=== PATIENT | male | born 1985 | race Caucasian/White ===

== ENCOUNTER 2022-06-06 05:50 | Emergency (ER) | payer OTHER, SELFPAY ==
[2022-06-06 05:55] VITALS: BP 127/87; PULSE 62; RESP 22; TEMP 36.8; O2SAT 99
[2022-06-06] MEDS: KETOROLAC (*BKC) 60 MG/2 ML VIAL IM (08:03)
[2022-06-06] MEDS: diazePAM (*CRX) 5 MG TABLET (08:03)
--- NOTE | 2022-06-06 08:58 | ED.BACK ---
HPI - Back Pain/Injury General Chief Complaint: Back Pain/Injury Stated Complaint: back pain Time Seen by Provider: 06/06/22 07:05 History of Present Illness HPI Narrative: Patient is a 36-year-old male who presents ER with low back pain and numbness in his right foot. Patient reports he underwent spine injection early this month. Since then he has had increased aching discomfort in his back and increase in numbness in the right lower extremity. Sometimes has trouble feeling his accelerator in the car. Denies any falls or injuries. No fevers or chills or sweats. He has contacted his pain management and recently finished 1 week of 60 mg of prednisone. Last dose was 5 days ago. Symptoms persist so he is seeking evaluation here today. No saddle anesthesia or urinary incontinence. Pain is improved with laying down and worse with getting up and standing. Related Data Allergies Allergy/AdvReac Type Severity Reaction Status Date / Time carbinoxamine [From [facility]] Allergy Hives Verified 06/06/22 06:26 pseudoephedrine [From [facility]] Allergy Hives Verified 06/06/22 06:26 Review of Systems Review of Systems: All systems reviewed & are unremarkable except as noted in HPI and below Constitutional: Constitutional: Denies chills and Denies fever(s) Gastrointestinal: Gastrointestinal: Denies abdominal pain, Denies nausea and Denies vomiting Musculoskeletal: Musculoskeletal: Reports back pain, Denies arthralgias and Denies joint swelling Neurologic: Denies headache(s), Denies focal weakness and Reports numbness PMFSH Past Medical History Medical History (Updated 06/06/22 @ 09:08 by Timmy Hankins MD) Chronic back pain Surgical History Surgical History (Updated 06/06/22 @ 09:08 by Timmy Hankins MD) History of back surgery Exam Narrative: GENERAL: Well-appearing, well-nourished, and in no acute distress. HEAD: Normocephalic, atraumatic. CHEST: Clear to auscultation. No respiratory distress. HEART: Regular rate and rhythm. Normal peripheral pulses. Back: No reproducible T/L-spine midline tenderness. No reproducible paraspinal muscular tenderness or SI tenderness. Scars present from previous low back surgery. No evidence sinus infection related to previous injection. EXTREMITIES: Normal range of motion. No edema. Ambulates without difficulty. SKIN: Warm, dry, no rash. NEURO: Sharp and soft touch intact in right lower extremity. Alert and oriented x3. PSYCH: Normal mood and affect. Course Course Emergency Course: Patient resting comfortably in bed chest has right lower back pain that radiates down his leg. He is up and ambulatory in the department under his own power without assistance. No focal deficit on exam. Treated with anti-inflammatories muscle relaxers here and he reports improvement.. Recommend follow-up with his pain management physician. We will provide some pain medication for home. Vital Signs Vital signs: Vital Signs Temperature 98.3 F 06/06/22 05:55 Pulse Rate 62 06/06/22 05:55 Respiratory Rate 22 H 06/06/22 05:55 Blood Pressure 127/87 06/06/22 05:55 Pulse Oximetry 99 06/06/22 05:55 Oxygen Delivery Room Air 06/06/22 05:55 Temperature 98.3 F 06/06/22 05:55 Pulse Rate 62 06/06/22 05:55 Respiratory Rate 22 H 06/06/22 05:55 Blood Pressure 127/87 06/06/22 05:55 Pulse Oximetry 99 06/06/22 05:55 Oxygen Delivery Room Air 06/06/22 05:55 Discharge Plan Discharge Clinical Impression: Sciatica Patient Disposition: Home, Self-Care Condition: Stable Instructions: Acute Low Back Pain (ED) Additional Instructions: Return to the ER if you have increased pain in your back, you develop lower extremity weakness/numbness/paralysis, you have numbness or tingling in your private parts, or you are unable to control your ability to urinate/stool. If you have GI upset make sure you are taking this medication with food. If your stools become dark black d
--- NOTE | 2022-06-06 09:27 | PC.NURSE ---
ASSESSMENT WAS DONE AT 0730 AND INADVERTENTLY DOCUMENTED AT THIS TIME.
== END 2022-06-06 09:10 | disposition home or self-care (01) ==
PROVIDERS: Emergency Provider Emergency Medicine; PCP Nurse Practitioner
DX: M54.41 Lumbago with sciatica, right side (principal)
CPT/HCPCS: 96372; 99284; A9270; J1885

== ENCOUNTER 2022-09-28 14:58 | Emergency (ER) | payer OTHER, SELFPAY ==
[2022-09-28 15:15] VITALS: BP 122/75; PULSE 72; RESP 16; TEMP 37; O2SAT 95
--- NOTE | 2022-09-28 15:16 | ED.URI ---
HPI - URI/Sore Throat General Chief Complaint: Upper Respiratory Infection Stated Complaint: SORE THROAT Time Seen by Provider: 09/28/22 15:16 Source: patient Mode of arrival: ambulatory Limitations: no limitations History of Present Illness HPI Narrative: 37-year-old male presents with complaint of sore throat, headache and fatigue score 3 days. Patient reports that his son has strep throat. Afebrile. All systems reviewed and negative except as noted above. Related Data Allergies Allergy/AdvReac Type Severity Reaction Status Date / Time carbinoxamine [From [facility]] Allergy Hives Verified 09/28/22 15:08 pseudoephedrine [From [facility]] Allergy Hives Verified 09/28/22 15:08 Review of Systems Review of Systems: CONSTITUTIONAL: Denies fever, chills, or sweats. Reports fatigue. EYES: Denies visual changes, redness, or discharge. ENT: Denies rhinorrhea, congestion. Reports sore throat. Denies otalgia. CARDIOVASCULAR: Denies chest pain, palpitations, or edema. RESPIRATORY: Denies cough or dyspnea. GASTROINTESTINAL: Denies abdominal pain, nausea, vomiting, or diarrhea. GENITOURINARY: Denies dysuria or hematuria. SKIN: Denies rash or itching. MUSCULOSKELETAL: Denies back pain, joint pain, or myalgia. NEUROLOGIC: Denies headache, numbness, or weakness. PSYCHIATRIC: Denies anxiety or depression. All other systems reviewed are negative, except as documented in HPI. [facility] Past Medical History Medical History (Updated 09/28/22 @ 15:43 by Melinda Castillo NP) Chronic back pain Surgical History Surgical History (Updated 06/06/22 @ 09:08 by Timmy Hankins MD) History of back surgery Comments At time of signature, agree with nursing past medical, surgical, social and family history. There is no relevant family history pertinent to the presenting complaint. Exam Narrative: GENERAL: This is a well-nourished, well-developed patient, in no apparent distress. HEAD: normocephalic, atraumatic. EYES: PERRL. Sclera clear/white. Vision is grossly intact. EARS: External ears normal, auditory canals clear and without drainage, TMs normal without perforation. Hearing grossly intact. NOSE: External nose normal with no obvious nasal discharge, nares without redness, no rhinorrhea. THROAT: Mucous membranes moist, erythema to posterior pharynx mild swelling. No exudates. NECK: Neck supple, non-tender without lymphadenopathy, masses or thyromegaly. CARDIOVASCULAR: Regular rate and rhythm without murmurs, gallops, or rubs. RESPIRATORY: Clear to auscultation. Breath sounds equal bilaterally. No wheezes, rales, or rhonchi. SKIN: warm, Dry, intact with no suspicious lesions or rash, good texture and turgor. NEURO: awake, alert, and oriented to person, place and time. There were no obvious focal neurologic abnormalities. EXTREMITIES: No joint tenderness, effusion, or edema noted. Course Course Level of Care: Express Care Visit Vital Signs Vital signs: Vital Signs Temperature 37.0 C 09/28/22 15:15 Pulse Rate 72 09/28/22 15:15 Respiratory Rate 16 09/28/22 15:15 Blood Pressure 122/75 09/28/22 15:15 Pulse Oximetry 95 09/28/22 15:15 Oxygen Delivery Room Air 09/28/22 15:15 Temperature 37.0 C 09/28/22 15:15 Pulse Rate 72 09/28/22 15:15 Respiratory Rate 16 09/28/22 15:15 Blood Pressure 122/75 09/28/22 15:15 Pulse Oximetry 95 09/28/22 15:15 Oxygen Delivery Room Air 09/28/22 15:15 Reviewed MDM - URI/Sore Throat MDM Narrative Medical decision making narrative: Patient is aware of diagnosis, understands and agrees to treatment plan. Anticipatory guidance given. Patient agrees to follow-up as directed and is aware of reasons to seek care at the emergency department. Portions of this record may have been created with voice recognition software Will treat patient for strep throat with antibiotics due to exposure, exam findings and symptoms. Differential Diagnosis Differential diagnosis: Like
== END 2022-09-28 15:47 | disposition home or self-care (01) ==
PROVIDERS: Emergency Provider Nurse Practitioner Family; PCP Nurse Practitioner
DX: J02.0 Streptococcal pharyngitis (principal)
CPT/HCPCS: 87081; 87880; 99213; G0463

== ENCOUNTER 2023-02-06 15:41 | Emergency (ER) | payer OTHER, SELFPAY ==
--- NOTE | ~2023-02-06 | XR_ITS ---
EXAM: XR finger 1st RT min 2V DATE: 02/06/2023 15:58 HISTORY: smashed finger in wood [employer] . COMPARISON: None available. FINDINGS: Lateral view limited by overlapping fingers. Normal mineralization. No fracture or dislocat ion. No lytic or blastic lesion. Joint spaces are maintained. No erosion or periosteal change. Soft t issues within normal limits. IMPRESSION: No acute osseous finding in the right thumb. Reviewed, dictated and finalized at location K.
[2023-02-06 15:50] VITALS: BP 127/71; PULSE 54; RESP 16; TEMP 36.4; O2SAT 97
--- NOTE | 2023-02-06 15:51 | ED.GENADULT ---
HPI - General Adult General Chief complaint: Extremity Injury, Upper Stated complaint: cut rt tip of fingernail Time Seen by Provider: 02/06/23 15:52 Source: patient Mode of arrival: ambulatory Limitations: no limitations History of Present Illness HPI narrative: 37 y/o male presented for c/o right thumb pain and bleeding under the nail after injury this morning at 0830. States he got the thumb caught between wood and the hydraulic cutting machine. Took Tylenol #3 at 1000. Has applied ice. Pain is 10/10. denies decreased ROM, numbness, tingling or weakness of the finger. Related Data Home Medications Medication Instructions Recorded Confirmed calcium carb-vitamin D3 ER 600 mg 1 tablet PO DAILY 02/06/23 02/06/23 (1,500 mg)-500 unit tablet,ER 24 hr cholecalciferol (vitamin D3) 25 25 mcg PO DAILY 02/06/23 02/06/23 mcg (1,000 unit) capsule (Vitamin D3) Allergies Allergy/AdvReac Type Severity Reaction Status Date / Time carbinoxamine [From [facility]] Allergy Hives Verified 02/06/23 15:48 pseudoephedrine [From [facility]] Allergy Hives Verified 02/06/23 15:48 Review of Systems Review of Systems: CONSTITUTIONAL: Denies body aches, fever, chills EYES: Denies visual changes ENT: Denies rhinorrhea, congestion CARDIOVASCULAR: Denies chest pain, palpitations, or edema. RESPIRATORY: Denies cough or dyspnea. GASTROINTESTINAL: Denies abdominal pain, nausea, vomiting, or diarrhea. SKIN: Denies rash, itching, or wounds. MUSCULOSKELETAL: Reports right thumb pain Denies back pain, joint pain, or myalgia. NEUROLOGIC: Denies headache, numbness, tingling, or weakness. All systems reviewed & are unremarkable except as noted in HPI and below PMFSH Past Medical History Medical History (Updated 02/06/23 @ 16:31 by Charline Ramos APRN) Chronic back pain Surgical History Surgical History (Updated 02/06/23 @ 16:25 by Charline Ramos APRN) H/O spinal fusion History of back surgery Comments At time of signature, I have reviewed and agree with nursing past medical, surgical, social and family history unless otherwise noted. Please see nursing chart for further information. There is no relevant family history pertinent to the presenting complaint Exam Narrative: GENERAL: appears in pain, no acute distress. HEAD: Normocephalic, atraumatic. EYES: conjunctivae clear NECK: Supple. CHEST: Speaks in full sentences. No respiratory distress. HEART: Regular rate and rhythm. Normal and equal peripheral pulses. EXTREMITIES: Right thumb with subungual hematoma. DIP has normal strength. Finger with normal sensation, normal range of motion. Nail is intact. No open wounds, or obvious deformity; alignment normal, pulse palpable and equal bilaterally, skin warm, dry, pink. Capillary refill less than 3 seconds. SKIN: Warm, dry, no rash. NEURO: Alert and oriented x3. PSYCH: Normal mood and affect Course Course Emergency Course: Patient is aware of diagnosis, understands and agrees to treatment plan. Anticipatory guidance given. Patient agrees to follow-up as directed and is aware of reasons to seek care at the emergency department. Portions of this record may have been created with voice recognition software Level of Care: Express Care Visit Vital Signs Vital signs: Vital Signs Temperature 97.5 F L 02/06/23 15:50 Pulse Rate 54 L 02/06/23 15:50 Respiratory Rate 16 02/06/23 15:50 Blood Pressure 127/71 02/06/23 15:50 Pulse Oximetry 97 02/06/23 15:50 Temperature 97.5 F L 02/06/23 15:50 Pulse Rate 54 L 02/06/23 15:50 Respiratory Rate 16 02/06/23 15:50 Blood Pressure 127/71 02/06/23 15:50 Pulse Oximetry 97 02/06/23 15:50 Reviewed Procedures Nail Trephination Nail Trephination #1: Nail Trephination Date: 02/06/23 Location (finger): right and thumb Sterile prep: chlorhexidine Method of drainage: nail cautery Procedure successful: Yes Patie
== END 2023-02-06 16:28 | disposition home or self-care (01) ==
PROVIDERS: Emergency Provider Nurse Practitioner Family; PCP Nurse Practitioner
DX: S60.111A Contusion of right thumb with damage to nail, initial encounter (principal); W31.89XA Contact with other specified machinery, initial encounter
CPT/HCPCS: 11740; 73140; 99213; G0463

== ENCOUNTER 2024-12-12 16:16 | Emergency (ER) | payer OTHER, SELFPAY ==
--- NOTE | ~2024-12-12 | XR_ITS ---
XR hand LT min 3V Ordering provider: Janis Mix NP History: . dropped car part on hand . Comparison: None. FINDINGS: BONES: No acute fracture or dislocation. JOINT SPACES: Well maintained. SOFT TISSUES: Unremarkable. IMPRESSION: No acute osseous abnormality left hand. Reviewed, dictated and finalized at location A.
[2024-12-12 16:20] VITALS: BP 132/79; PULSE 53; RESP 18; TEMP 36.6; O2SAT 98
--- NOTE | 2024-12-12 16:26 | WC.ED.TRAUMA ---
HPI - Trauma General Chief Complaint: Extremity Injury, Upper Stated Complaint: Left Hand Pain Time Seen by Provider: 12/12/24 16:36 Source: patient, RN notes reviewed and old records reviewed Mode of arrival: ambulatory Limitations: no limitations History of Present Illness HPI narrative: 39 year old male patient presents to clinic with complaints of dropping a 30 LB car part onto his left hand about 2.5 hours ago. Patient reports that he has some discomfort to the dorsal aspect of his left hand between the 1st digit and thumb. Patient reports that he has most discomfort with gripping. He completed the job he was working on and his boss tole him to go get x-ray. complaint: other (dropped 30 # car part on his left dorsal hand) Onset (ago): hour(s) (2.5 hours ago) Loss of Consciousness: no Location: other (left dorsal hand between thumb and index finger region) Severity scale (1-10): 2 Associated symptoms: other (mild swelling to area with mild pain, increased pain with gripping.) Treatments prior to arrival: other (none) Related Data Home Medications ?Medication ?Instructions ?Recorded ?Confirmed ?Last Taken ?Type calcium carb-vitamin D3 ER 600 mg 1 tablet PO DAILY 02/06/23 02/06/23 Unknown History (1,500 mg)-500 unit tablet,ER 24 hr cholecalciferol (vitamin D3) 25 25 mcg PO DAILY 02/06/23 02/06/23 Unknown History mcg (1,000 unit) capsule (Vitamin D3) Allergies Allergy/AdvReac Type Severity Reaction Status Date / Time carbinoxamine (From [facility]) Allergy Hives Verified 12/12/24 16:26 pseudoephedrine (From [facility]) Allergy Hives Verified 12/12/24 16:26 Review of Systems Review of Systems: CONSTITUTIONAL: Denies fever, chills, or sweats. EYES: Denies visual changes, redness, or discharge. ENT: Denies rhinorrhea, congestion, sore throat, or otalgia. CARDIOVASCULAR: Denies chest pain, palpitations, or edema. RESPIRATORY: Denies cough or dyspnea. GASTROINTESTINAL: Denies abdominal pain, nausea, vomiting, or diarrhea. GENITOURINARY: Denies dysuria or hematuria. SKIN: Denies rash or itching. MUSCULOSKELETAL: Denies acute back pain does have some chronic back pain at times, positive for discomfort to left dorsal hand between thumb and index finger, , or myalgia. NEUROLOGIC: Denies headache, numbness, or weakness. PSYCHIATRIC: Denies anxiety or depression. All systems reviewed & are unremarkable except as noted in HPI and below PMFSH Past Medical History Medical History (Updated 12/13/24 @ 00:02 by Taylor Dover) Chronic back pain Surgical History Surgical History (Updated 02/06/23 @ 16:25 by Charline Solano APRN) H/O spinal fusion History of back surgery Social History Social History (Updated 12/13/24 @ 12:38 by Janis Mix NP) Alcohol intake: current Alcohol use details: social Substance use type: does not use Living arrangements: with family Gender identity (if verbalized by the patient): Male Comments At time of signature, agree with nursing past medical, surgical, social and family history. There is no relevant family history pertinent to the presenting complaint Exam Narrative: GENERAL: Well-appearing, well-nourished, and in no acute distress. HEAD: Normocephalic, atraumatic. EYES: PERRLA and EOMI. ENT: Nares clear, no rhinorrhea or epistaxis. Mucous membranes moist. NECK: Supple.no lymphadenopathy CHEST: Clear to auscultation. No respiratory distress.SAO2 98% on room air HEART: Regular rate and rhythm. No murmur heard. Normal peripheral pulses. ABDOMEN: Soft, nontender, nondistended, normal active bowel sounds. EXTREMITIES: Normal range of motion. No edema. minimal swelling to the dorsal aspect of left hand between thumb and 1st finger area where 30# car part fell on his hand, has full mobility of hand and finger, denies any tingling or numbness to his left hand, strong left radial pulse increased discomfort with gripping.fingers warm and pink. SKIN: Warm, dry, no rash. NEURO: No focal deficits. Alert and oriented x3. Course Course Emergency Course: Patient is aware of diagnosis, understands and agrees to treatment plan.? Anticipatory guidance given.? Patient agrees to follow-up as directed and is aware of reasons to seek care at the emergency department. Portions of this record may have been created with voice recognition software Level of Care: Express Care Visit Vital Signs Vital signs: Vital Signs Temperature 36.6 C 12/12/24 16:20 Pulse Rate 53 L 12/12/24 16:20 Respiratory Rate 18 12/12/24 16:20 Blood Pressure 132/79 12/12/24 16:20 Pulse Oximetry 98 12/12/24 16:20 Oxygen Delivery Room Air 12/12/24 16:20 Temperature 36.6 C 12/12/24 16:20 Pulse Rate 53 L 12/12/24 16:20 Respiratory Rate 18 12/12/24 16:20 Blood Pressure 132/79 12/12/24 16:20 Pulse Oximetry 98 12/12/24 16:20 Oxygen Delivery Room Air 12/12/24 16:20 Reviewed MDM - Trauma MDM Narrative Medical decision making narrative: differential diagnosis: contusion to left hand , swelling to dorsal left hand, fracture to left hand X-ray reports given to patient Medical Records Attestation: I reviewed the patient's medical records. Imaging Data Attestation: I personally reviewed and interpreted this imaging study as follows: My impression: no acute fracture or dislocation of left hand Radiologist's impression: [address] [place] [address] XRay Report Signed Patient: Garth Kurtz : 1985 MR#: [id number] Age: 39 Acct:[id number] Loc: [id number] ADM Date: 12/12/24Attending Dr: Ordering Physician: Janis Mix APRN Date of Service: 12/12/24 Procedure(s): XR hand LT min 3V Accession Number(s): [id number] cc: SPECIMEN TECHNICIAN PHYSICIAN; Janis Mix APRN~ XR hand LT min 3V Ordering provider: Janis Mix NP History: . dropped car part on hand . Comparison: None. FINDINGS: BONES: No acute fracture or dislocation. JOINT SPACES: Well maintained. SOFT TISSUES: Unremarkable. IMPRESSION: No acute osseous abnormality left hand. Reviewed, dictated and finalized at location A. Please be advised this is a medical document. It is intended for [id number] communication. It is written in medical language and may contain unfamiliar abbreviations or verbiage. Medical documents are intended to carry relevant information, facts as evident, and the clinical opinion of the practitioner at the time of the encounter. This report may have been done utilizing a voice recognition system. Attempts have been made to correct errors. However, there may be uncorrected grammatical, spelling, and recognition errors present. The file time of this note does not necessarily represent the time of service. Dictated By: Dion Rubin MD 12/12/24 5235 Signed By: <Electronically signed by Dion Rubin MD in OV> Critical Care Time Critical Care Time Critical Care Time: No Discharge Plan Discharge Clinical Impression: Contusion of left hand, initial encounter Patient Disposition: Home Condition: Stable Instructions: Contusion in Adults (ED) Additional Instructions: Tylenol for lesser pain Ibuprofen regularly for the next 2-3 days for the inflammation Follow-up with orthopedic surgeon or hand surgeon If any further complaints Follow-up with PCP if further problems or concerns Ice to the area 20-30 minutes 4-6 times a day Elevate above heart move all fingers frequently If your symptoms persist, change or worsen significantly before you can contact your personal physician then please, without delay, go to the emergency department for further evaluation. Follow-up with PCP in 7-10 days or sooner if needed Follow up with PCP soon in regards to your blood pressure which is elevated above threshold for referral. Blood pressure above 120/80 may indicate pre-hypertension. 132/79 Patient Language: Telugu Prescriptions: No Action cholecalciferol (vitamin D3) [Vitamin D3] 25 mcg (1,000 unit) Capsule 25 mcg PO DAILY All Day Calcium 600 mg(1,500mg) -500 unit Tablet Extended Release 24 Hr 1 tablet PO DAILY Follow-up/Referrals: PHYSICIAN,SPECIMEN TECHNICIAN [Primary Care Provider] - Time of Disposition: 17:08 [place] Coma Scale Eyes: Open Verbal: Oriented and Alert Motor: Follows Commands Juan Carlos Coma Total Score: 15
== END 2024-12-12 17:17 | disposition home or self-care (01) ==
PROVIDERS: Emergency Provider Registered Nurse
DX: S60.222A Contusion of left hand, initial encounter (principal); W20.8XXA Other cause of strike by thrown, projected or falling object, initial encounter
CPT/HCPCS: 73130; 99213; G0463